=== PATIENT | female | born 1980 | race Asian ===

== ENCOUNTER 2018-04-23 00:39 | Observation (INO) | payer BC ==
[2018-04-23 01:53] LABS: ABSOLUTE EOSINOPHILS # (AUTO) 0.5 10^3/uL (0.0-0.6); ABSOLUTE LYMPHOCYTES (AUTO) 2.5 10^3/uL (0.5-4.7); ABSOLUTE MONOCYTES (AUTO) 0.9 10^3/uL (0.1-1.4); ABSOLUTE NEUT (AUTO) 7.6 10^3/uL (1.7-8.2); BASOPHILS % (AUTO) 0.3 % (0-2); HEMATOCRIT 39.1 % (36.0-47.0); HEMOGLOBIN 13.1 g/dL (12.0-15.5); LYMPHOCYTES % (AUTO) 21.5 % (13-45); MEAN CORPUSCULAR HEMOGLOBIN 31.2 pg (27.0-33.4); MEAN CORPUSCULAR HGB CONC 33.4 g/dL (32.0-36.0); MEAN CORPUSCULAR VOLUME 93 fl (80-97); MONOCYTES % (AUTO) 7.5 % (3-13); PLATELET COUNT 291 10^3/uL (150-450); RED BLOOD COUNT 4.19 10^6/uL (3.72-5.28); RED CELL DISTRIBUTION WIDTH 12.5 % (11.5-14.0); SEGMENTED NEUTROPHILS % (AUTO) 66.7 % (42-78); TOTAL CELLS COUNTED % (AUTO) 100 %; WHITE BLOOD COUNT 11.4 10^3/uL (4.0-10.5)
[2018-04-23] MEDS ORDERED: KETOROLAC TROMETHAMINE INJ/PF 30 MG/1 ML SDV IV ONE (01:58)
[2018-04-23] MEDS ORDERED: MORPHINE SULFATE 10 MG/ML INJ IV PRN ×2 (01:58→06:48)
[2018-04-23] MEDS ORDERED: ONDANSETRON HCL INJ/PF 4 MG/2 ML SDV IV ONE (01:58)
[2018-04-23] MEDS ORDERED: NORMAL SALINE 1000 ML 1,000 ML IV ONE (01:59)
--- NOTE | 2018-04-23 02:14 | ER Document Report ---
ED General - General Chief Complaint: Abdominal Pain Stated Complaint: ABDOMINAL PAIN Time Seen by Provider: 04/23/18 01:04 Notes: Patient is a 37-year-old female with a past medical history of right-sided colonic diverticulitis in 2006, history of epilepsy, presents with complaints of 2 days of progressively worsening right lower abdominal pain. Patient describes as a throbbing, aching, constant pain to the right lower abdomen worsened by movement or jostling the abdomen. Nothing improves the pain. States this feels very similar to when she was diagnosed with right-sided colonic diverticulitis via diagnostic laparoscopy in 2006 at [facility]. She states that they did not remove her appendix at that time. She notes associated nausea but no vomiting. Has had decreased appetite. Has not seen her primary doctor regarding today's concerns. Denies any vaginal bleeding or discharge. No dysuria. TRAVEL OUTSIDE OF THE [place] IN LAST 30 DAYS: No - Related Data Allergies/Adverse Reactions: Sulfa (Sulfonamide Antibiotics) Allergy (Verified 04/23/18 00:48) Past Medical History - General Information source: Patient - Social History Smoking Status: Never Smoker Chew tobacco use (# tins/day): No Frequency of alcohol use: None Drug Abuse: None Lives with: Spouse/Significant other Family History: Reviewed & Not Pertinent Patient has suicidal ideation: No Patient has homicidal ideation: No Renal/ Medical History: Denies: Hx Peritoneal Dialysis Review of Systems - Review of Systems Notes: Constitutional: Negative for fever. HENT: Negative for sore throat. Eyes: Negative for visual changes. Cardiovascular: Negative for chest pain. Respiratory: Negative for shortness of breath. Gastrointestinal: Positive for abdominal pain and nausea Genitourinary: Negative for dysuria. Musculoskeletal: Negative for back pain. Skin: Negative for rash. Neurological: Negative for headaches, weakness or numbness. 10 point ROS negative except as marked above and in HPI. Physical Exam - Vital signs Vitals: Temp Pulse Resp BP Pulse Ox 98.7 F 97 16 138/93 H 98 04/23/18 00:43 04/23/18 00:43 04/23/18 00:43 04/23/18 00:43 04/23/18 00:43 Interpretation: Normal Notes: PHYSICAL EXAMINATION: GENERAL: Appears moderately unwell but in no acute distress HEAD: Atraumatic, normocephalic. EYES: Pupils equal round and reactive to light, extraocular movements intact, sclera anicteric, conjunctiva are normal. ENT: nares patent, oropharynx clear without exudates. Moist mucous membranes. NECK: Normal range of motion, supple without lymphadenopathy LUNGS: Breath sounds clear to auscultation bilaterally and equal. No wheezes rales or rhonchi. HEART: Regular rate and rhythm without murmurs ABDOMEN: Soft, focal tenderness to the right lower abdomen with rebound and guarding of the area. No other localized areas of tenderness. EXTREMITIES: Normal range of motion, no pitting or edema. No cyanosis. NEUROLOGICAL: No focal neurological deficits. Moves all extremities spontaneously and on command. PSYCH: Normal mood, normal affect. SKIN: Warm, Dry, normal turgor, no rashes or lesions noted. Course - Re-evaluation Re-evalutation: 04/23/18 03:25 Patient presents with focal tenderness to the right lower quadrant worrisome for possible acute appendicitis versus recurrence of right-sided colonic diverticulitis. Given her exam, CT the abdomen pelvis with IV and oral contrast will be undertaken. Initial laboratories did show a mild leukocytosis, otherwise unremarkable. 04/23/18 04:32 CT abdomen pelvis has been read as showing a upper limit of normal sized appendix without surrounding inflammatory changes. However given this radiographic finding with patient's localization of abdominal pain, history and exam I do believe that her overall picture is most consistent with an acute appendicitis. I have discussed with Dr. aZmora who will evaluate the patient for surgical management. - Vital Signs Vital signs: Temp Pulse Resp BP Pulse Ox 98.7 F 97 16 138/93 H 98 04/23/18 00:43 04/23/18 00:43 04/23/18 00:43 04/23/18 00:43 04/23/18 00:43 - Laboratory Result Diagrams: 04/23/18 01:46 04/23/18 02:39 Laboratory results interpreted by me: 04/23/18 04/23/18 04/23/18 01:46 02:39 02:43 WBC 11.4 H BUN 6 L Urine Blood MODERATE H - Diagnostic Test Radiology reviewed: Reports reviewed Discharge - Discharge Clinical Impression: Acute appendicitis Qualifiers: Acute appendicitis type: with localized peritonitis Appendicitis gangrene presence: unspecified whether gangrene present Appendicitis perforation presence: without perforation Appendicitis abscess presence: without abscess Qualified Code(s): K35.30 - Acute appendicitis with localized peritonitis, without perforation or gangrene Condition: Fair Disposition: ADMITTED OBSERVATION Admitting Provider: Surgicalist Unit Admitted: Surgical Floor Referrals: NIALL BATES MD [Primary Care Provider] - Follow up as needed
[2018-04-23 03:02] LABS: APPEARANCE,URINE CLEAR; BILIRUBIN,URINE NEGATIVE (NEGATIVE); COLOR,URINE STRAW; GLUCOSE, URINE NEGATIVE (NEGATIVE); KETONES,URINE NEGATIVE (NEGATIVE); LEUKOCYTE ESTERASE,URINE NEGATIVE (NEGATIVE); NITRITE,URINE NEGATIVE (NEGATIVE); PROTEIN,URINE NEGATIVE (NEGATIVE); URINE SPECIFIC GRAVITY 1.004; UROBILINOGEN,URINE NEGATIVE mg/dL (<2.0)
[2018-04-23 03:02] LABS: ALANINE AMINOTRANSFERASE 28 U/L (9-52); ALKALINE PHOSPHATASE 56 U/L (38-126); ANION GAP 8 (5-19); ASPARTATE AMINO TRANSFERASE 17 U/L (14-36); BILIRUBIN,DIRECT 0.3 mg/dL (0.0-0.4); BILIRUBIN,TOTAL 0.3 mg/dL (0.2-1.3); BLOOD UREA NITROGEN 6 mg/dL (7-20); CALCIUM 9.3 mg/dL (8.4-10.2); CARBON DIOXIDE 27 mmol/L (22-30); CHLORIDE 107 mmol/L (98-107); GLUCOSE 110 mg/dL (75-110); LIPASE 67.1 U/L (23-300); POTASSIUM 4.1 mmol/L (3.6-5.0); SODIUM 142.1 mmol/L (137-145)
--- NOTE | 2018-04-23 04:08 | RADIOLOGY REPORT (SQ) ---
EXAM DESCRIPTION: CT ABDOMEN PELVIS WITH IV CONTRAST COMPLETED DATE/TME: 04/23/2018 00:00 CLINICAL HISTORY: 37 years, Female, rlq abdominal pain COMPARISON: None. TECHNIQUE: Axial CT images of the abdomen and pelvis were obtained after the administration of IV and oral contrast. Sagittal and coronal reformats were performed. DLP 947 Images stored on PACS. All CT scanners at this facility use dose modulation, iterative reconstruction, and/or weight based dosing when appropriate to reduce radiation dose to as low as reasonably achievable (ALARA). [facility]: Dose Right [facility]: CareDose [facility]: Dose Right [facility]: Teradose 4D [facility]: [employer] LIMITATIONS: None. FINDINGS: Lung bases are clear. The liver, gallbladder, pancreas, spleen, and adrenal glands are unremarkable. Both kidneys appear normal with no evidence of hydronephrosis or hydroureter. There is no intraperitoneal free air or fluid. There is no lymphadenopathy. The stomach and small bowel appear normal. The appendix measures up to 7 mm in diameter with no definite surrounding inflammatory changes. The colon appears unremarkable. The uterus contains a 3.9 cm fibroid. The urinary bladder appears unremarkable. There are no lytic or blastic bone lesions. IMPRESSION: The appendix is at the upper limit of normal in size with no definite surrounding inflammatory changes. This may be due to an early acute uncomplicated appendicitis. Uterine fibroid. TECHNICAL DOCUMENTATION: Quality ID # 436: Final reports with documentation of one or more dose reduction techniques (e.g., Automated exposure control, adjustment of the mA and/or kV according to patient size, use of iterative reconstruction technique) copyright 2011 [employer]- All Rights Reserved
[2018-04-23] MEDS ORDERED: RINGERS SOLUTION,LACTATED 1,000 ML IV PRN (05:22)
--- NOTE | 2018-04-23 05:22 | PDOC H&P ---
History of Present Illness Admission Date/PCP: 04/23/18 04:55 NIALL BATES MD April 23, 2018 Patient complains of: Abdominal pain right lower quadrant History of Present Illness: EDE RIVERS is a 37 year old female Presents to the emergency department via ground rescue complaining of a 2-day history of abdominal pain right lower quadrant, associated with anorexia and nausea some vomiting no change in bowel habits. Symptoms identical to those of 12 years ago warranting a exploratory laparoscopy. This was at [facility], and she was diagnosed with right-sided diverticulitis. She also had a colonoscopy at that time which demonstrated diverticulosis and redundant colon. In the emergency department tonight she had a CT scan of the abdomen and pelvis with IV and oral contrast which showed an enlarged appendix but no periappendiceal inflammation or appendicolith. She is found to have a 5 cm uterine fibroid, no evidence of torsion or hemorrhage. Because of persisting right lower quadrant pain mild leukocytosis in the CT scan findings above, consulted, patient was evaluated, felt to have probable acute appendicitis, was advised admission and surgical intervention. 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; she works at the pharmacy [employer] Family History Family History: Reviewed & Not Pertinent Parental Family History Reviewed: Yes Children Family History Reviewed: Yes Sibling(s) Family History Reviewed.: Yes Medication/Allergy Allergies/Adverse Reactions: Sulfa (Sulfonamide Antibiotics) Allergy (Verified 04/23/18 00:48) Review of Systems Constitutional: PRESENT: as per HPI Eyes: ABSENT: visual disturbances Ears: ABSENT: hearing changes Cardiovascular: ABSENT: chest pain, dyspnea on exertion, edema, orthropnea, palpitations Respiratory: ABSENT: cough, hemoptysis Gastrointestinal: PRESENT: as per HPI Genitourinary: PRESENT: other - Patient denies vaginal discharge. ABSENT: dysuria, hematuria Musculoskeletal: ABSENT: joint swelling Integumentary: ABSENT: rash, wounds Psychiatric: ABSENT: anxiety, depression, homidical ideation, suicidal ideation Endocrine: ABSENT: cold intolerance, heat intolerance, polydipsia, polyuria Hematologic/Lymphatic: ABSENT: easy bleeding, easy bruising Physical Exam Vital Signs: Temp Pulse Resp BP Pulse Ox 98.7 F 97 16 138/93 H 98 04/23/18 00:43 04/23/18 00:43 04/23/18 00:43 04/23/18 00:43 04/23/18 00:43 Intake & Output 04/21/18 04/22/18 04/23/18 06:59 06:59 06:59 Intake Total 1000 Balance 1000 Weight 74.843 kg General appearance: PRESENT: no acute distress Head exam: PRESENT: normocephalic Eye exam: PRESENT: EOMI Mouth exam: PRESENT: dry mucosa Neck exam: PRESENT: full ROM Respiratory exam: PRESENT: clear to auscultation donald Cardiovascular exam: PRESENT: RRR Pulses: PRESENT: normal carotid pulses, normal radial pulses, normal femoral pulses, normal dorsalis pedis pul GI/Abdominal exam: PRESENT: other - Soft; scars consistent with previous surgery; localized right lower quadrant tenderness at McBurney's point Rectal exam: PRESENT: deferred Extremities exam: PRESENT: full ROM Musculoskeletal exam: PRESENT: full ROM Neurological exam: PRESENT: alert, altered, awake, oriented to person, oriented to place Skin exam: PRESENT: dry Results Laboratory Results: 04/23/18 01:46 04/23/18 02:39 04/23/18 04/23/18 04/23/18 01:46 01:46 01:46 WBC 11.4 H RBC 4.19 Hgb 13.1 Hct 39.1 MCV 93 MCH 31.2 MCHC 33.4 RDW 12.5 Plt Count 291 Seg Neutrophils % 66.7 Lymphocytes % 21.5 Monocytes % 7.5 Eosinophils % 4.0 Basophils % 0.3 Absolute Neutrophils 7.6 Absolute Lymphocytes 2.5 Absolute Monocytes 0.9 Absolute Eosinophils 0.5 Absolute Basophils 0.0 Sodium Cancelled Potassium Cancelled Chloride Cancelled Carbon Dioxide Cancelled Anion Gap Cancelled BUN Cancelled Creatinine Cancelled Est GFR ( Amer) Cancelled Est GFR (Non-Af Amer) Cancelled Glucose Cancelled Calcium Cancelled Total Bilirubin Cancelled AST Cancelled ALT Cancelled Alkaline Phosphatase Cancelled Total Protein Cancelled Albumin Cancelled Lipase Cancelled Serum HCG, Qual NEGATIVE Urine Color Urine Appearance Urine pH Ur Specific [place] Urine Protein Urine Glucose (UA) Urine Ketones Urine Blood Urine Nitrite Ur Leukocyte Esterase Urine WBC (Auto) Urine RBC (Auto) 04/23/18 04/23/18 02:39 02:43 WBC RBC Hgb Hct MCV MCH MCHC RDW Plt Count Seg Neutrophils % Lymphocytes % Monocytes % Eosinophils % Basophils % Absolute Neutrophils Absolute Lymphocytes Absolute Monocytes Absolute Eosinophils Absolute Basophils Sodium 142.1 Potassium 4.1 Chloride 107 Carbon Dioxide 27 Anion Gap 8 BUN 6 L Creatinine 0.64 Est GFR ( Amer) > 60 Est GFR (Non-Af Amer) > 60 Glucose 110 Calcium 9.3 Total Bilirubin 0.3 AST 17 ALT 28 Alkaline Phosphatase 56 Total Protein 7.0 Albumin 4.0 Lipase 67.1 Serum HCG, Qual Urine Color STRAW Urine Appearance CLEAR Urine pH 7.0 Ur Specific [place] 1.004 Urine Protein NEGATIVE Urine Glucose (UA) NEGATIVE Urine Ketones NEGATIVE Urine Blood MODERATE H Urine Nitrite NEGATIVE Ur Leukocyte Esterase NEGATIVE Urine WBC (Auto) 1 Urine RBC (Auto) 2 Impressions: Abdomen/Pelvis CT 04/23/18 00:00 IMPRESSION: The appendix is at the upper limit of normal in size with no definite surrounding inflammatory changes. This may be due to an early acute uncomplicated appendicitis. Uterine fibroid. TECHNICAL DOCUMENTATION: Quality ID # 436: Final reports with documentation of one or more dose reduction techniques (e.g., Automated exposure control, adjustment of the mA and/or kV according to patient size, use of iterative reconstruction technique) copyright 2011 [employer]- All Rights Reserved Assessment & Plan - Diagnosis (1) Acute appendicitis Qualifiers: Acute appendicitis type: with localized peritonitis Appendicitis gangrene presence: unspecified whether gangrene present Appendicitis perforation presence: without perforation Appendicitis abscess presence: without abscess Qualified Code(s): K35.30 - Acute appendicitis with localized peritonitis, without perforation or gangrene Is this a current diagnosis for this admission?: Yes Plan: Impression: acute appendicitis based on history, localized tenderness right lower quadrant mild leukocytosis, and CT scan findings demonstrating an enlarged appendix; no evidence of perforation abscess free air. Patient has a large uterine fibroid which could be causing symptoms but less likely. Commendations: 1. After discussing findings above with radiologist, emergency room physician, and patient, we have elected to proceed with diagnostic laparoscopy, appende ctomy, photodocumentation, main operating room this morning under general anesthesia. 2. I have discussed the risk benefits alternatives to the operation including bleeding, infection, injury to other structures, need for additional surgery. Patient expressed understanding and agrees to proceed. (2) Epilepsy Is this a current diagnosis for this admission?: Yes - Time Time Spent: 50 to 70 Minutes Critical Time spent with patient: 15-24 minutes Medications reviewed and adjusted accordingly: Yes Anticipated discharge: Home - Inpatient Certification Based on my medical assessment, after consideration of the patient's comorbidities, presenting symptoms, or acuity I expect that the services needed warrant INPATIENT care.: Yes I certify that my determination is in accordance with my understanding of Medicare's requirements for reasonable and necessary INPATIENT services [42 CFR 412.3e].: Yes Medical Necessity: Need For IV Fluids, Need for Pain Control, Need for IV Antibiotics, Need for Surgery
[2018-04-23] MEDS ORDERED: CEFAZOLIN 1 GM/D5W RTU 1 GM/50 ML RTUPB IV ONE ×2 (05:41→05:47)
[2018-04-23] MEDS ORDERED: PROPOFOL INJ 200 MG/20 ML VIAL IV ONE (05:50)
[2018-04-23] MEDS ORDERED: MORPHINE SULFATE 10 MG/ML INJ ONE (05:50)
[2018-04-23] MEDS ORDERED: ACETAMINOPHEN 1,000 MG/100 ML RTUPB IV ONE (05:50)
[2018-04-23] MEDS ORDERED: FENTANYL CITRATE INJ/PF 100 MCG/2 ML AMPUL ONE (05:50)
[2018-04-23] MEDS ORDERED: MIDAZOLAM 2 MG/2 ML INJ ONE (05:50)
[2018-04-23] MEDS ORDERED: CEFAZOLIN 2 GM/D5W RTU 2 GM/50 ML RTUPB IV ONE (06:00)
[2018-04-23] MEDS ORDERED: BUPIVACAINE HCL 0.25 % INJ/PF (2.5 MG/1 ML) 30 ML VIAL ONE (06:32)
[2018-04-23] MEDS ORDERED: ONDANSETRON HCL INJ/PF 4 MG/2 ML SDV IV PRN ×2 (06:48→07:14)
[2018-04-23] MEDS ORDERED: PROMETHAZINE HCL INJ 25 MG/1 ML VIAL IV PRN ×2 (06:48)
[2018-04-23] MEDS ORDERED: FENTANYL CITRATE INJ/PF 100 MCG/2 ML AMPUL IV PRN ×3 (06:48)
[2018-04-23] MEDS ORDERED: DIPHENHYDRAMINE HCL 50 MG/ML VIAL IV PRN (06:48)
[2018-04-23] MEDS ORDERED: MEPERIDINE HCL/PF INJ 25 MG/1 ML DISP.SYRIN IV PRN (06:48)
[2018-04-23] MEDS ORDERED: KETOROLAC TROMETHAMINE INJ/PF 30 MG/1 ML SDV IV PRN (07:14)
[2018-04-23] MEDS ORDERED: KETOROLAC TROMETHAMINE 10 MG TABLET PO PRN (07:14)
--- NOTE | 2018-04-23 07:22 | Operative Report ---
Operative Report DATE OF SURGERY: 04/23/18 PREOPERATIVE DIAGNOSIS: 1. Acute appendicitis. 2. Right uterine fibroid POSTOPERATIVE DIAGNOSIS: Same OPERATION: 1. Laparoscopic lysis of adhesions. 2. Laparoscopic appendectomy SURGEON: NIALL RUFF ANESTHESIA: GA TISSUE REMOVED OR ALTERED: 1 appendix COMPLICATIONS: None ESTIMATED BLOOD LOSS: Scant INTRAOPERATIVE FINDINGS: See below PROCEDURE: Patient taken to the preop holding area the main operating room and general anesthesia was induced. Right arm extended on an armboard, left arm tucked at side. The abdomen was prepped and draped in sterile fashion with Betadine Surgical plan surgical timeout were conducted. Skin was excised at the infraumbilical position suprapubic position and right mid quadrant position at the sites of previous laparoscopy scars. An infraumbilical incision was made with a knife, Veress needle inserted in the peritoneal cavity pneumoperitoneum was established. Veress needle was removed, 5 mm ports inserted and a 5 mm a supraumbilical 5 mm ports inserted. Findings are significant for no pus, no free air, and no bleeding. Moderately dense adhesions between the cecum and the anterior lower pelvic peritoneal lining. Photos were taken. All adhesions taken down using a combination of blunt and electrocautery dissection. A portion of the ascending colon was tethered to the anterior abdominal wall by thick taken down between clips and scissors. We inspected the uterus and the right tube and ovary were intact and well visualized. There is a small fibroid coming off the right side of the uterus. The uterus itself was lightly enlarged. Photos taken. We now proceed with appendectomy. The appendix was somewhat shriveled up, and tracked against the pericecal tissue. It was grasped, elevated and from the mesial appendix using electrocautery. A single clip was applied on the appendiceal artery. At this point the appendix was suspended from its base and a small portion of the mesial appendix. Both structures were taken a single firing of the stapler. The appendix was removed the patient to the infra umbilical port site. The specimen was passed off to pathology. There was no gross purulence or fecal matter identified. Returned the peritoneal cavity check bleeding there was none. We irrigated the right lower quadrant several times suction the irrigant and again the staple line on the appendiceal stump appeared to be intact. At this point felt the operation was complete. We reinspected the pelvis, and aspirated the pelvis formally, as well as the right paracolic gutter. All ports removed under direct visualization, pneumoperitoneum evacuated wounds closed with 0 Vicryl 3-0 Vicryl benzoin and Steri-Strips. Patient tolerated the procedure well, extubated, and taken to recovery room in stable condition.
--- NOTE | 2018-04-23 12:17 | PDOC DISCHARGE SUMMARY ---
General - Admit/Disc Date/PCP Admission Date/Primary Care Provider: 04/23/18 04:55 NIALL BATES MD Discharge Date: 04/23/18 - Discharge Diagnosis (1) Acute appendicitis Is this a current diagnosis for this admission?: Yes Summary: Ronan was admitted early this morning for symptoms of acute appendicitis. Taken to the operating room where she underwent a laparoscopic appendectomy. Postoperatively she has has had a routine postop course tolerating a regular diet. Been given instructions on her postop course and appointment to see the surgeon in the [facility] in 7-10 days and she will be given an off work slip for 7-10 days. She will be given Tylenol No. 3 for pain medicine #20 of them 1 p.o. every 4 as needed pain Patient is being discharged home. - Additional Information Resuscitation Status: Full Code Home Medications: Clonazepam [Klonopin] 0.5 mg PO DAILYP PRN 04/23/18 Lamotrigine [Lamictal Xr] 25 mg PO DAILY 04/23/18 Lamotrigine [Lamictal Xr] 200 mg PO DAILY 04/23/18 Levetiracetam [Keppra Xr 500 mg Tab.sr] 1,000 mg PO DAILY 04/23/18 Norethindrone-E.estradiol-Iron [Microgestin Fe 1-20 Tablet] 1 tab PO DAILY 04/23/18 History of Present Illness History of Present Illness: EDE RIVERS is a 37 year old female Physical Exam Vital Signs: Temp Pulse Resp BP Pulse Ox 97.5 F 84 15 118/77 97 04/23/18 11:19 04/23/18 11:19 04/23/18 11:19 04/23/18 11:19 04/23/18 11:19 Intake & Output 04/22/18 04/23/18 04/24/18 06:59 06:59 06:59 Intake Total 1450 700 Output Total 450 25 Balance 1000 675 Weight 74.843 kg GI/Abdominal exam: PRESENT: other - abd is soft., non tender 3 lap sites are dressed and dry. Results Laboratory Results: 04/23/18 01:46 04/23/18 02:39 04/23/18 04/23/18 04/23/18 01:46 01:46 01:46 WBC 11.4 H RBC 4.19 Hgb 13.1 Hct 39.1 MCV 93 MCH 31.2 MCHC 33.4 RDW 12.5 Plt Count 291 Seg Neutrophils % 66.7 Lymphocytes % 21.5 Monocytes % 7.5 Eosinophils % 4.0 Basophils % 0.3 Absolute Neutrophils 7.6 Absolute Lymphocytes 2.5 Absolute Monocytes 0.9 Absolute Eosinophils 0.5 Absolute Basophils 0.0 Sodium Cancelled Potassium Cancelled Chloride Cancelled Carbon Dioxide Cancelled Anion Gap Cancelled BUN Cancelled Creatinine Cancelled Est GFR ( Amer) Cancelled Est GFR (Non-Af Amer) Cancelled Glucose Cancelled Calcium Cancelled Total Bilirubin Cancelled AST Cancelled ALT Cancelled Alkaline Phosphatase Cancelled Total Protein Cancelled Albumin Cancelled Lipase Cancelled Serum HCG, Qual NEGATIVE Urine Color Urine Appearance Urine pH Ur Specific [place] Urine Protein Urine Glucose (UA) Urine Ketones Urine Blood Urine Nitrite Ur Leukocyte Esterase Urine WBC (Auto) Urine RBC (Auto) 04/23/18 04/23/18 02:39 02:43 WBC RBC Hgb Hct MCV MCH MCHC RDW Plt Count Seg Neutrophils % Lymphocytes % Monocytes % Eosinophils % Basophils % Absolute Neutrophils Absolute Lymphocytes Absolute Monocytes Absolute Eosinophils Absolute Basophils Sodium 142.1 Potassium 4.1 Chloride 107 Carbon Dioxide 27 Anion Gap 8 BUN 6 L Creatinine 0.64 Est GFR ( Amer) > 60 Est GFR (Non-Af Amer) > 60 Glucose 110 Calcium 9.3 Total Bilirubin 0.3 AST 17 ALT 28 Alkaline Phosphatase 56 Total Protein 7.0 Albumin 4.0 Lipase 67.1 Serum HCG, Qual Urine Color STRAW Urine Appearance CLEAR Urine pH 7.0 Ur Specific [place] 1.004 Urine Protein NEGATIVE Urine Glucose (UA) NEGATIVE Urine Ketones NEGATIVE Urine Blood MODERATE H Urine Nitrite NEGATIVE Ur Leukocyte Esterase NEGATIVE Urine WBC (Auto) 1 Urine RBC (Auto) 2 Impressions: Abdomen/Pelvis CT 04/23/18 00:00 IMPRESSION: The appendix is at the upper limit of normal in size with no definite surrounding inflammatory changes. This may be due to an early acute uncomplicated appendicitis. Uterine fibroid. TECHNICAL DOCUMENTATION: Quality ID # 436: Final reports with documentation of one or more dose reduction techniques (e.g., Automated exposure control, adjustment of the mA and/or kV according to patient size, use of iterative reconstruction technique) copyright 2011 [employer] All Rights Reserved Qualifiers - * PATIENT BEING DISCHARGED WITH ANY OF THE FOLLOWING DIAGNOSIS: No Reason(s) for not prescribing Overlap Therapy:: Not indicated Stroke Pt being discharged on Anti-thrombolytic therapy?: No Reason(s) for not prescribing Anti-thrombolytic therapy:: Not indicated Stroke Pt being discharged on Anti-coagulation therapy?: No Reason(s) for not prescribing Anti-coagulation therapy:: Not indicated Stroke Pt being discharged on Statins?: No Reason(s) for not prescribing Statins therapy:: Not indicated ID Pt being discharged on Aspirin therapy?: No Reason(s) for not prescribing Aspirin therapy:: Not indicated ID Pt being discharged on Statins?: No Reason(s) for not prescribing Statin therapy:: Not indicated ID Pt discharged ACEI/ARBS?: No HF Pt being discharged on ACEI for LVEF less than 40%?: No Reason(s) for not prescribing ACEI:: Not indicated HF Pt being discharged on ARBS for LVEF less than 40%?: No Reason(s) for not prescribing ARBS:: Contraindicated HF Pt with Afib discharged with Warfarin?: No Reason(s) for not prescribing Warfarin:: Not indicated HF Pt discharged on evidence-based Beta Dwain:: No Reason(s) for not prescribing evidence-based Beta Dwain:: Not indicated
[2018-04-23 12:39] VITALS: BP 126/78
[2018-04-23] MEDS ORDERED: SUCCINYLCHOLINE CHLORIDE INJ 200 MG/10 ML VIAL ONE (12:51)
[2018-04-23] MEDS ORDERED: DEXAMETHASONE SOD PHOSPHATE INJ 4 MG/1 ML VIAL ONE (12:51)
[2018-04-23] MEDS ORDERED: ONDANSETRON HCL INJ/PF 4 MG/2 ML SDV ONE (12:51)
[2018-04-23] MEDS ORDERED: ROCURONIUM BROMIDE INJ 50 MG/5 ML VIAL IV ONE (12:51)
== END 2018-04-23 15:57 | disposition home or self-care (01) ==
LOC: ER 00:39 → EH 04:55 → 2S 09:08
PROVIDERS: ATTEND Surgery
PROC: 0DNW4ZZ Release Peritoneum, Percutaneous Endoscopic Approach (ICD-10-PCS; 2018-04-23)
PROC: 0DTJ4ZZ Resection of Appendix, Percutaneous Endoscopic Approach (ICD-10-PCS; principal; 2018-04-23 06:30)
DX: K35.80 Unspecified acute appendicitis (principal); G40.909 Epilepsy, unspecified, not intractable, without status epilepticus; Q43.8 Other specified congenital malformations of intestine; D25.9 Leiomyoma of uterus, unspecified; K66.0 Peritoneal adhesions (postprocedural) (postinfection); Z79.899 Other long term (current) drug therapy; Z87.19 Personal history of other diseases of the digestive system
CPT/HCPCS: 99285; 96361; 96374; 36415; 83690; 84703; 85025; 80053; 81001; 88304 ×2; 74177; 44970; 44180; G0378 ×2; J2250; J3490; J1100; J3010; J1885; J2270; J0330; J2405; J7030; J7120; J2704; J0690; J0131; 840

== ENCOUNTER 2018-09-13 20:53 | Emergency (ER) | payer BC ==
[2018-09-13] MEDS ORDERED: NORMAL SALINE 1000 ML 1,000 ML IV ONE (22:33)
[2018-09-13] MEDS ORDERED: DIPHENHYDRAMINE HCL 50 MG/ML VIAL IV ONE (22:33)
[2018-09-13] MEDS ORDERED: PROCHLORPERAZINE EDISYLATE INJ 10 MG/2 ML VIAL IV ONE (22:34)
[2018-09-13 22:49] LABS: ABSOLUTE EOSINOPHILS # (AUTO) 0.2 10^3/uL (0.0-0.6); ABSOLUTE LYMPHOCYTES (AUTO) 2.9 10^3/uL (0.5-4.7); ABSOLUTE MONOCYTES (AUTO) 0.6 10^3/uL (0.1-1.4); ABSOLUTE NEUT (AUTO) 5.8 10^3/uL (1.7-8.2); BASOPHILS % (AUTO) 0.3 % (0-2); EOSINOPHILS % (AUTO) 1.9 % (0-6); HEMATOCRIT 39.8 % (36.0-47.0); HEMOGLOBIN 13.5 g/dL (12.0-15.5); LYMPHOCYTES % (AUTO) 30.8 % (13-45); MEAN CORPUSCULAR HEMOGLOBIN 30.9 pg (27.0-33.4); MEAN CORPUSCULAR HGB CONC 33.8 g/dL (32.0-36.0); MEAN CORPUSCULAR VOLUME 91 fl (80-97); MONOCYTES % (AUTO) 6.3 % (3-13); PLATELET COUNT 298 10^3/uL (150-450); RED BLOOD COUNT 4.35 10^6/uL (3.72-5.28); RED CELL DISTRIBUTION WIDTH 12.4 % (11.5-14.0); SEGMENTED NEUTROPHILS % (AUTO) 60.7 % (42-78); TOTAL CELLS COUNTED % (AUTO) 100 %; WHITE BLOOD COUNT 9.5 10^3/uL (4.0-10.5)
[2018-09-13 23:01] LABS: ALANINE AMINOTRANSFERASE 23 U/L (9-52); ALBUMIN 4.1 g/dL (3.5-5.0); ALKALINE PHOSPHATASE 43 U/L (38-126); ANION GAP 11 (5-19); ASPARTATE AMINO TRANSFERASE 22 U/L (14-36); BILIRUBIN,DIRECT 0.3 mg/dL (0.0-0.4); BILIRUBIN,TOTAL 0.4 mg/dL (0.2-1.3); BLOOD UREA NITROGEN 11 mg/dL (7-20); CALCIUM 9.6 mg/dL (8.4-10.2); CARBON DIOXIDE 25 mmol/L (22-30); CHLORIDE 104 mmol/L (98-107); GLUCOSE 144 mg/dL (75-110); POTASSIUM 3.9 mmol/L (3.6-5.0); SODIUM 139.6 mmol/L (137-145); TOTAL PROTEIN 7.4 g/dL (6.3-8.2)
--- NOTE | 2018-09-13 23:22 | ER Document Report ---
Entered by EDNA RIVER SCRIBE 09/13/18 1603 Acting as scribe for:NATALIE GIRON MD ED General - General Chief Complaint: Headache >24 hrs old Stated Complaint: POSSIBLE BLEEDING Time Seen by Provider: 09/13/18 22:18 Primary Care Provider: NIALL BATES MD [Primary Care Provider] - Follow up as needed Mode of Arrival: Ambulatory Information source: Patient Notes: Patient is a 37 year old female with epilepsy presents to the emergency department complaining of a headache onset 3 days ago. Patient states 3 days ago, she woke up at normal time with her alarm when she noticed she had a "severe headache" . She describes the headache as "2 ice picks stabbing my head" that was located on the right side. She states she also had numbness in that area and later developed nausea and vomiting that day. She states she was unable to go to work due to the pain. She states the pain persisted until today when it changed into a dull ache located frontally, around her eyes and into her neck. Patient states this headache is different from prior headaches due to it lasting longer, further stating her headaches normally last for 1 day and are relieved with ibuprofen, nasal spray and Sudafed. She presented to urgent care today and was instructed to come to the ED for further evaluation. Patient reports typically having auras before her seizures and reports having an "auras sensation" today. She states she was told to take clonazepam whenever she had the sensations however, she reports she did not do so today. Patient states that she is prescribed [place] for her history of severe headaches by her PCP at [facility]. She also reports being prescribed Keppra extended release and Lamictal extended release for epilepsy. TRAVEL OUTSIDE OF THE [place] IN LAST 30 DAYS: No - Related Data Allergies/Adverse Reactions: Sulfa (Sulfonamide Antibiotics) Allergy (Verified 04/23/18 00:48) Past Medical History - General Information source: Patient - Social History Smoking Status: Never Smoker Cigarette use (# per day): No Chew tobacco use (# tins/day): No Smoking Education Provided: No Frequency of alcohol use: None Drug Abuse: None Lives with: Spouse/Significant other Family History: Reviewed & Not Pertinent Patient has suicidal ideation: No Patient has homicidal ideation: No Neurological Medical History: Reports: Hx Migraine, Hx Seizures Past Surgical History: Reports: Hx Appendectomy - [facility] Review of Systems - Review of Systems Constitutional: No symptoms reported EENT: See HPI Cardiovascular: No symptoms reported Respiratory: No symptoms reported Gastrointestinal: See HPI, Nausea, Vomiting Genitourinary: No symptoms reported Female Genitourinary: No symptoms reported Musculoskeletal: No symptoms reported Skin: No symptoms reported Hematologic/Lymphatic: No symptoms reported Neurological/Psychological: See HPI, Headaches Physical Exam - Vital signs Vitals: Temp Pulse Resp BP Pulse Ox 98.3 F 90 18 134/84 H 98 09/13/18 21:12 09/13/18 21:12 09/13/18 21:12 09/13/18 21:12 09/13/18 21:12 - Notes Notes: GENERAL: Alert, interacts well. No acute distress. HEAD: Normocephalic, atraumatic. No scalp or sinus tenderenss to palpation. Complains of dizziness when moving head from side to side. EYES: Pupils equal, round, and reactive to light. Extraocular movements intact. No lateral gaze nystagmus. ENT: Oral mucosa moist, tongue midline. NECK: Full range of motion. Supple. Trachea midline. Posterior cervical muscles tender to palpation bilaterally, R>L. Complains of pain similar to whiplash when moving head up and down, side to side. Does not complain of pain with chin to chest testing. Complains of bilateral posterior cervical muscles pain with extension of neck. LUNGS: Clear to auscultation bilaterally, no wheezes, rales, or rhonchi. No respiratory distress. HEART: Regular rate and rhythm. No murmurs, gallops, or rubs. ABDOMEN: Soft, non-tender. Non-distended. Bowel sounds present in all 4 quadrants. No guarding, rigidity, or rebound. EXTREMITIES: Moves all 4 extremities spontaneously. NEUROLOGICAL: Alert and oriented x3. Normal speech. PSYCH: Normal affect, normal mood. SKIN: Warm, dry, normal turgor. No rashes or lesions noted. Course - Re-evaluation Re-evalutation: 09/14/18 00:09 At this time the patient reports her headache is completely gone she feels much better. She is smiling. When she moves her head about, she does feel a little discomfort in the posterior cervical muscles but nothing like what she had originally. She is palpating those posterior cervical muscles as she moves her head and reports that there still is some tenderness to pressure on the muscles. She is inquiring about getting a prescription for the Compazine to treat headaches in the future since this seemed to work so well. The patient's headache did respond quite nicely to Benadryl and Compazine. The history and physical suggests this is a muscle tension type headache and neck pain. I do not believe this is a subarachnoid hemorrhage type headache, so lumbar puncture would not be indicated. All of this was discussed with the patient, and she is in agreement with this approach to managing her headache. - Vital Signs Vital signs: Temp Pulse Resp BP Pulse Ox 98.3 F 90 18 134/84 H 98 09/13/18 21:12 09/13/18 21:12 09/13/18 21:12 09/13/18 21:12 09/13/18 21:12 - Laboratory Result Diagrams: 09/13/18 22:25 09/13/18 22:25 Laboratory results interpreted by me: 09/13/18 22:25 Glucose 144 H - Diagnostic Test Radiology reviewed: Image reviewed, Reports reviewed - CT scan of the head is unremarkable. Discharge - Discharge Clinical Impression: Muscle tension headache Condition: Stable Disposition: HOME, SELF-CARE Additional Instructions: Tension Headache Your problem has been diagnosed as muscle tension headache. This very common type of headache occurs because of tightness in the muscles of the head and neck. The cause may be neck or jaw joint problems, but most commonly the cause is emotional stress. The headache may last hours or days. The treatment of uncomplicated tension headaches is rest and pain medication. Often, the newer antiinflammatory pain medications are prescribed, as these also decrease the irritability of the painful tissues. Muscle relaxers, cold packs, or warm packs are sometimes helpful. Anti-anxiety med ication or narcotics are sometimes needed temporarily, but are best avoided in the long run. Your doctor has evaluated your headache problem, and finds no evidence of a serious health problem as a cause for the headache. If your headache becomes more severe, or if new symptoms develop (such as fever, stiff neck, vomiting, or decreasing alertness) you should be re-examined by the physician. Your evaluation today suggests this is a muscle tension type headache. You also report a long history of occasional tension or migraine type headaches. Try taking the Compazine with Benadryl when you get a headache. Follow-up with your primary care provider or your neurologist if you continue to get headaches. Return to the emergency room immediately if your headache gets worse, or you develop nausea and vomiting. RETURN TO THE EMERGENCY ROOM IF ANY NEW OR WORSENING SYMPTOMS. Prescriptions: Prochlorperazine Maleate [Compazine 10 mg Tablet] 10 mg PO ASDIR PRN #10 tablet PRN Reason: Referrals: NIALL BATES MD [Primary Care Provider] - Follow up as needed Scribe Attestation: 09/13/18 23:23 I personally performed the services described in the documentation, reviewed and edited the documentation which was dictated to the scribe in my presence, and it accurately records my words and actions. I personally performed the services described in the documentation, reviewed and edited the documentation which was dictated to the scribe in my presence, and it accurately records my words and actions.
--- NOTE | 2018-09-13 23:29 | RADIOLOGY REPORT (SQ) ---
EXAM DESCRIPTION: CT HEAD WITHOUT IV CONTRAST COMPLETED DATE/TME: 09/13/2018 22:34 CLINICAL HISTORY: 37 years, Female, Wake up headache COMPARISON: None. TECHNIQUE: Noncontrast CT of the head was performed. Coronal and sagittal reformations were created. Images stored on PACS. All CT scanners at this facility use dose modulation, iterative reconstruction, and/or weight based dosing when appropriate to reduce radiation dose to as low as reasonably achievable (ALARA). [facility]: Dose Right [facility]: CareDose [facility]: Dose Right [facility]: Teradose 4D [facility]: [employer] LIMITATIONS: None. FINDINGS: Brain parenchyma is normal in attenuation. No acute intracranial hemorrhage, mass effect, or extra-axial fluid is seen. The ventricles, sulci, and basilar cisterns are normal in size and configuration. Globes and orbits are normal. Rounded opacity is noted about the inferior aspect of the right maxillary antrum, partially imaged. This most likely represents a mucous retention cyst or inflammatory polyp. Paranasal sinuses and mastoid air cells are otherwise clear. There are no depressed skull fractures. IMPRESSION: No acute intracranial abnormality. TECHNICAL DOCUMENTATION: Quality ID # [id number]: Final reports with documentation of one or more dose reduction techniques (e.g., Automated exposure control, adjustment of the mA and/or kV according to patient size, use of iterative reconstruction technique) copyright 2011 [employer]- All Rights Reserved
[2018-09-14 00:40] VITALS: BP 124/88
== END 2018-09-14 00:41 | disposition home or self-care (01) ==
LOC: ER 20:53
DX: G44.209 Tension-type headache, unspecified, not intractable (principal); R20.0 Anesthesia of skin; R11.2 Nausea with vomiting, unspecified; G40.909 Epilepsy, unspecified, not intractable, without status epilepticus; Z79.899 Other long term (current) drug therapy; Z91.14 Patient's other noncompliance with medication regimen; R42 Dizziness and giddiness; M79.18 Myalgia, other site; Z88.2 Allergy status to sulfonamides
CPT/HCPCS: 99284; 96374; 96375; 36415; 84703; 85025; 80053; 70450; J1200; J0780; J7030; 96361